=== PATIENT | male | born 1990 | race Caucasian/White ===

== ENCOUNTER 2017-10-20 18:19 | Emergency (ER) | payer SELFPAY ==
[~2017-10-20] VITALS: Ht 188 cm; Wt 113.4 kg
--- NOTE | ~2017-10-20 | O ---
[facility] [place] [address] OPERATIVE REPORT Name: GISEL LU Room #: [facility]P [id number] Admission: 10/20/17 Attend Phys: Discharge: 10/20/17 Date of : 88 Report #: [id number] THIS REPORT FOR: //name// CC: Mickey Hardwick NO PCP DATE OF SERVICE: 10/20/2017 PREOPERATIVE DIAGNOSIS: Left shoulder closed dislocation. POSTOPERATIVE DIAGNOSIS: Left shoulder closed dislocation. PROCEDURE: Left shoulder closed reduction. SURGEON: Mickey Hardwick M.D. ANESTHESIA: General, propofol. ESTIMATED BLOOD LOSS: Zero. DRAINS: No drains. TOURNIQUET: No tourniquets. COMPLICATIONS: No complications. DESCRIPTION OF PROCEDURE: The patient is brought to the operating room, where he is placed under sedation with propofol and Versed by the anesthesiologist. Once under adequate sedation, a reduction maneuver was performed with traction-countertraction on the left upper extremity. Subsequent to this, a reduction did occur. A palpable clunk was felt. Post-reduction films confirmed the reduction to be complete. Once complete, the patient was awakened from his sedation and he tolerated the procedure well. He is placed into a shoulder immobilizer. There were no complications from the procedure. The patient tolerated the procedure well and went to the recovery room without incident. <ELECTRONICALLY SIGNED> By: Mickey Hardwick MD 10/21/17 0812 [id number] [id number] Mickey Hardwick MD /lida
--- NOTE | ~2017-10-20 | EKG ---
[place] [address] [facility] [place] [address] ELECTROCARDIOGRAM REPORT Name: GISEL LU Room #: DEP Yesika#: [id number] Admission: 10/20/17 Attend Phys: Discharge: 10/20/17 Date of : 88 Report #: [id number] THIS REPORT FOR: //name// [facility] ED Test Date: 2017-10-20 Test Time: 18:34:37 Pat Name: GISEL LU Department: Room: [facility] Gender: M Gm: YELENA : 1990 Requested By: Daniel Yates Order Number: [id number] MD: Rg Casanova Measurements Intervals [place] Rate: 107 P: [place]: QRS: 65 QRSD: 100 T: 49 QT: 350 QTc: 467 Interpretive Statements Sinus rhythm Early repolarization No previous ECG available for comparison Electronically Signed On 10-21-2017 7:51:38 DIRECTOR ACCOUNT MANAGEMENT by Rg Casanova [email or web address] <ELECTRONICALLY SIGNED> By: Rg Casanova MD, [facility] 10/21/17 0751 1834 1834 Rg Casanova MD, FACC /EPI
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
[2017-10-20 18:24] VITALS: BP 119/97
[2017-10-20 18:52] LABS: ABSOLUTE NEUTROPHILS 10.6 thou/uL (1.4-8.2); BASOPHILS 0.7 % (0.0-2.0); EOSINOPHILS 0.3 % (0.0-3.0); HEMATOCRIT 44.7 % (42.0-52.0); HEMOGLOBIN 15.6 gm/dL (14.0-18.0); LYMPHOCYTES 16.6 % (24.0-44.0); MCH 29.5 pg (26.0-34.0); MCHC 34.9 g/dL (28.0-37.0); MCV 84.5 fL (80.0-100.0); PLATELET COUNT 316 thou/uL (150-400); POLYS 74.4 % (36.0-66.0); RBC 5.29 mil/uL (4.50-6.00); WBC 14.2 thou/uL (4.0-11.0)
[2017-10-20 19:00] LABS: ANION GAP 16 mmol/L (7-16); BUN 21 mg/dL (7-18); CHLORIDE 104 mmol/L (98-107); CO2 19 mmol/L (21-32); CREATININE 1.9 mg/dL (0.7-1.3); GLUCOSE 167 mg/dL (74-106); POTASSIUM 4.1 mmol/L (3.5-5.1); SODIUM 139 mmol/L (136-145)
[2017-10-20 19:06] LABS: ALBUMIN 4.4 g/dL (3.4-5.0); SALICYLATE < 2.8 mg/dL (2.8-20.0); SGOT 61 U/L (15-37); SGPT 97 U/L (30-65); TOTAL BILIRUBIN 0.5 mg/dL (<0.1-1.0); TOTAL PROTEIN 7.9 g/dL (6.4-8.2)
[2017-10-20 21:30] VITALS: BP 133/74
[2017-10-20] MEDS ORDERED: NORCO 5-325 TA1 EACH PO (21:56)
== END 2017-10-20 21:30 | disposition home or self-care (01) ==
LOC: ER 18:19 → TBA 22:42 → ER 22:42 → EROBS 22:57
PROVIDERS: Emergency Medicine
DX: S43.035A Inferior dislocation of left humerus, initial encounter (principal); S43.015A Anterior dislocation of left humerus, initial encounter; S70.212A Abrasion, left hip, initial encounter; S80.812A Abrasion, left lower leg, initial encounter; S80.211A Abrasion, right knee, initial encounter; V03.99XA Pedestrian with other conveyance injured in collision with car, pick-up truck or van, unspecified whether traffic or nontraffic accident, initial encounter; Y93.89 Activity, other specified; Y92.481 Parking lot as the place of occurrence of the external cause; Y99.8 Other external cause status
CPT/HCPCS: 50101; 62110; 62850; 70005